=== PATIENT | female | born 1980 | race Caucasian/White ===

== ENCOUNTER → 2024-03-24 | Outpatient (CLI) | payer SELFPAY | LOC: M OUTALCOH 08:17 | PROVIDERS: ATTEND Psychiatry & Neurology Psychiatry | DX: F10.10 Alcohol abuse, uncomplicated (principal); Z72.0 Tobacco use ==

== ENCOUNTER 2024-04-08 15:53 | Outpatient (RCR) | payer SELFPAY | END 2024-04-09 | LOC: M OUTALCOH 15:53 | PROVIDERS: ATTEND Psychiatry & Neurology Psychiatry | DX: F10.10 Alcohol abuse, uncomplicated (principal); Z72.0 Tobacco use ==

== ENCOUNTER 2024-05-05 16:00 | Outpatient (RCR) | payer SELFPAY | END 2024-05-09 | LOC: M OUTALCOH 16:00 | PROVIDERS: ATTEND Psychiatry & Neurology Psychiatry | DX: F10.10 Alcohol abuse, uncomplicated (principal); Z72.0 Tobacco use ==

== ENCOUNTER 2024-05-22 13:00 | Outpatient (RCR) | payer SELFPAY | END 2024-06-09 | LOC: M OUTALCOH 13:00 | PROVIDERS: ATTEND Psychiatry & Neurology Psychiatry | DX: F10.10 Alcohol abuse, uncomplicated (principal); Z72.0 Tobacco use ==